=== PATIENT | female | born 1990 | race African-American/Black ===

== ENCOUNTER 2022-12-02 16:50 | Emergency (ER) | payer OTHER ==
[~2022-12-02] VITALS: Ht 160 cm; Wt 59.0 kg
[~2022-12-02 16:50] MED LIST: ABIL5 PO; CHLO25CA10 MT; FOLI-43 PO; HYDR-4001 MT; LORA-249 MT; MULT-230 MT; PANT40TA51 MT; THIA100T72 PO
[2022-12-02 16:53] VITALS: BP 164/96
[2022-12-02] MEDS ORDERED: ONDANSETRON HCL 4MG/2ML INJ IV STA (19:08)
[2022-12-02] MEDS ORDERED: SODIUM CHLORIDE 0.9% 1,000 ML IV ONE (19:15)
[2022-12-02 19:38] LABS: BASOPHILS % 0.5 % (0.0-2.0); HEMATOCRIT. 32.9 % (36.0-48.0); HEMOGLOBIN. 11.3 g/dL (12.0-16.0); LYMPHOCYTES % 37.7 % (20.0-50.0); MEAN CORPUSCULAR HEMOGLOBIN 30.8 pg (28.0-32.0); MEAN PLATELET VOLUME 7.1 fl (7.4-10.4); MONOCYTES % 6.4 % (2.0-8.0); NEUTROPHILS % 55.4 % (40.0-76.0); PLATELET 250 x1000/uL (130-400); RED BLOOD CELL COUNT 3.66 mill/uL (4.2-5.4); RED CELL DISTRIBUTION WIDTH 16.4 % (11.6-14.6)
[2022-12-02 19:43] LABS: CHLORIDE 105 mEq/L (98-107)
[2022-12-02 19:48] LABS: HCG SCREEN NEGATIVE
[2022-12-02 19:53] LABS: ETHANOL BLOOD < 10 mg/dL
[2022-12-02] MEDS ORDERED: MAGNESIUM OXIDE 400MG TABLET PO SCH (20:30)
[2022-12-02] MEDS ORDERED: POTASSIUM CHLORIDE 20MEQ TABLET SR PO ONE (20:30)
[2022-12-02] MEDS ORDERED: POTASSIUM CHLORIDE 20MEQ TABLET SR PO NR (23:00)
== END 2022-12-02 23:26 | disposition home or self-care (01) ==
LOC: ER 16:50
DX: F10.10 Alcohol abuse, uncomplicated (principal); R11.2 Nausea with vomiting, unspecified; E87.6 Hypokalemia; F41.9 Anxiety disorder, unspecified; F31.9 Bipolar disorder, unspecified; Z87.891 Personal history of nicotine dependence; Z79.899 Other long term (current) drug therapy
CPT/HCPCS: 36415; 80053; 80320; 83690; 84703; 85025; 96361; 96374; 99283; J2405; J7030; Z7610; G0480